=== PATIENT | female | born 1985 | race Caucasian/White ===

== ENCOUNTER 2020-03-08 14:54 | Inpatient (IN) | payer MEDICAID ==
[~2020-03-08] VITALS: Ht 160 cm; Wt 94.3 kg
[2020-03-08 16:19] LABS: BASOPHILS % 0.3 % (0.0-2.0); EOSINOPHILS % 1.8 % (0.0-5.0); HEMATOCRIT. 35.3 % (36.0-48.0); HEMOGLOBIN. 12.1 g/dL (12.0-16.0); LYMPHOCYTES % 20.3 % (20.0-50.0); MEAN CORPUSCULAR HEMOGLOBIN 32.5 pg (28.0-32.0); MEAN CORPUSCULAR VOLUME 94.7 fL (81.0-99.0); MEAN PLATELET VOLUME 11.4 fl (7.4-10.4); MONOCYTES % 6.8 % (2.0-8.0); NEUTROPHILS % 70.8 % (40.0-76.0); PLATELET 119 x1000/uL (130-400); RED BLOOD CELL COUNT 3.72 mill/uL (4.2-5.4); RED CELL DISTRIBUTION WIDTH 13.5 % (11.6-14.6)
[2020-03-08 16:20] LABS: CLARITY URINE CLEAR (CLEAR); COLOR URINE YELLOW (YELLOW); KETONES URINE 1+ (NEGATIVE); LEUKOCYTE ESTERASE URINE NEGATIVE (NEGATIVE); NITRITE URINE NEGATIVE (NEGATIVE); OCCULT BLOOD URINE 1+ (NEGATIVE); PH URINE 6.5 (4.5-8.0); PROTEIN URINE 1+ (NEGATIVE); SPECIFIC GRAVITY URINE 1.022 (1.005-1.030)
[2020-03-08 16:25] LABS: CHLORIDE 111 mEq/L (98-107)
[2020-03-08 16:30] LABS: D-DIMER 1.55 mg/L FEU (<0.50); INR 0.9; PARTIAL THROMBOPLASTIN TIME 27.2 sec (23.4-31.0); PROTHROMBIN TIME 9.4 sec (9.6-11.0)
[2020-03-08] MEDS ORDERED: MISOPROSTOL 100MCG TABLET VG SCH (22:00)
[2020-03-08] MEDS ORDERED: NALOXONE HCL 0.4 MG/ML 1ML VIAL IM PRN (22:00)
[2020-03-08] MEDS ORDERED: PENICILLIN G POTASSIUM 5 MMU in DEXT 5% WATER 100 ML IV SCH (22:00)
[2020-03-08 22:27] LABS: *AMPHETAMINES SCREEN URINE NEGATIVE (NEGATIVE); *BARBITURATES SCREEN URINE NEGATIVE (NEGATIVE); *BENZODIAZEPINES SCREEN URINE NEGATIVE (NEGATIVE); *COCAINE SCREEN URINE NEGATIVE (NEGATIVE)
[2020-03-08] MEDS: DEXT 5%/LACTATED RINGERS 1,000 ML IV SCH (22:27)
[2020-03-08 22:28] LABS: CANNABINOID URINE SCREEN NEGATIVE (NEGATIVE); METHADONE URINE SCREEN NEGATIVE (NEGATIVE); OPIATES URINE SCREEN NEGATIVE (NEGATIVE); PHENCYCLIDINE URINE SCREEN NEGATIVE (NEGATIVE)
[2020-03-08] MEDS: BUTORPHANOL TARTRATE 2 MG/ML VIAL IV PRN (22:30)
[2020-03-08] MEDS ORDERED: FISH MT (22:44)
[2020-03-08] MEDS ORDERED: PREN1TAB22 MT (22:44)
[2020-03-08] MEDS ORDERED: FERR325T6 PO (22:44)
[2020-03-08] MEDS ORDERED: BUPR1FIL SL (22:44)
[2020-03-08] MEDS ORDERED: CHOL200077 PO (22:44)
[2020-03-09] MEDS: PENICILLIN G POTASSIUM 2.5 MMU in DEXTROSE 5% WATER 50 ML IV SCH ×5 (02:50→22:02)
[2020-03-09] MEDS: BUTORPHANOL TARTRATE 2 MG/ML VIAL IV PRN ×3 (03:10→15:02)
[2020-03-09] MEDS ORDERED: MISOPROSTOL 100MCG TABLET VG PRN ×2 (03:45→11:30)
[2020-03-09] MEDS ORDERED: ROPIVACAINE HCL/PF EPIDURAL 200 ML EPI SCH (05:45)
[2020-03-09] MEDS ORDERED: FENTANYL CITRATE/PF 50MCG/ML 2ML VIAL ONE ×4 (09:13→20:04)
[2020-03-09] MEDS: DEXT 5%/LACTATED RINGERS 1,000 ML IV SCH ×2 (11:30→14:21)
[2020-03-09] MEDS ORDERED: EPHEDRINE SULFATE 50MG/ML VIAL ONE (13:21)
[2020-03-09] MEDS ORDERED: SODIUM CHLORIDE 0.9% 10ML VIAL ONE (13:21)
[2020-03-09] MEDS ORDERED: BUPIVACAINE HCL/PF 0.25% (2.5MG/ML) 10ML ONE ×2 (13:22→20:04)
[2020-03-09] MEDS: LACTATED RINGERS 1,000 ML IV SCH ×2 (14:21→19:55)
[2020-03-09] MEDS ORDERED: ROPIVACAINE HCL 2MG/ML (0.2%) 200ML BOTTLE IR ONE (14:30)
[2020-03-09 16:48] LABS: HEPATITIS B SURFACE ANTIGEN NEGATIVE
[2020-03-09] MEDS ORDERED: DEXT 5%/LR + PITOCIN 20UNITS/L 1,000 ML IV SCH (18:00)
[2020-03-09] MEDS ORDERED: DEXT 5%/LR + PITOCIN 20UNITS/L 1,000 ML IV ONE (18:10)
[2020-03-10] MEDS ORDERED: HEMORRHOIDAL SUPP PR PRN (01:15)
[2020-03-10] MEDS ORDERED: DIPHENHYDRAMINE 25MG CAPSULE PO PRN (01:15)
[2020-03-10] MEDS ORDERED: BISACODYL 10MG SUPP PR PRN (01:15)
[2020-03-10] MEDS ORDERED: DEXT 5%/LR + PITOCIN 20UNITS/L 1,000 ML IV SCH (01:15)
[2020-03-10] MEDS ORDERED: IBUPROFEN 400MG TABLET PO PRN (01:15)
[2020-03-10] MEDS ORDERED: LANOLIN OINT 7GM TUBE TOP PRN (01:15)
[2020-03-10] MEDS ORDERED: BENZOCAINE/LANOLIN/ALOE VERA SPRAY TOP PRN (01:15)
[2020-03-10] MEDS: IBUPROFEN 800MG TABLET PO PRN ×3 (02:11→17:17)
[2020-03-10 03:00] VITALS: BP 132/78
[2020-03-10] MEDS: ACETAMINOPHEN WITH CODEINE 300/30MG TABLET PO PRN ×4 (03:08→17:17)
[2020-03-10] MEDS ORDERED: HYDROMORPHONE HCL 4MG TABLET PO SCH (04:00)
[2020-03-10] MEDS ORDERED: HYDROMORPHONE HCL 2MG TABLET PO SCH (04:30)
[2020-03-10] MEDS ORDERED: MAGNESIUM/ALUMINUM HYDROXIDE/SIMETHICONE 30ML UDC PO SCH (07:30)
[2020-03-10 08:00] VITALS: BP 121/79
[2020-03-10] MEDS ORDERED: SIMETHICONE 80MG TABLET CHEW PO SCH (08:00)
[2020-03-10] MEDS ORDERED: PRENATAL VIT/FE FUMARATE/FA TABLET PO SCH (09:00)
[2020-03-10 13:30] VITALS: BP 128/76
[2020-03-10 20:10] VITALS: BP 102/62
[2020-03-10] MEDS ORDERED: DOCUSATE SODIUM 100MG CAPSULE PO SCH (21:00)
[2020-03-11] VITALS: BP 105/60
[2020-03-11] MEDS: IBUPROFEN 800MG TABLET PO PRN ×2 (00:31→11:21)
[2020-03-11] MEDS: ACETAMINOPHEN WITH CODEINE 300/30MG TABLET PO PRN ×3 (00:55→09:45)
[2020-03-11 05:05] VITALS: BP 104/59
[2020-03-11] MEDS ORDERED: FERROUS SULFATE 325MG TABLET PO SCH (07:30)
[2020-03-11 07:45] VITALS: BP 132/78
[2020-03-11] MEDS ORDERED: IBUP-2030 PO (07:56)
[2020-03-11 08:06] LABS: BASOPHILS % 0.4 % (0.0-2.0); EOSINOPHILS % 1.4 % (0.0-5.0); HEMATOCRIT. 28.1 % (36.0-48.0); HEMOGLOBIN. 9.6 g/dL (12.0-16.0); LYMPHOCYTES % 26.3 % (20.0-50.0); MEAN CORPUSCULAR HEMOGLOBIN 32.6 pg (28.0-32.0); MEAN CORPUSCULAR VOLUME 95.7 fL (81.0-99.0); MEAN PLATELET VOLUME 11.4 fl (7.4-10.4); MONOCYTES % 5.9 % (2.0-8.0); PLATELET 99 x1000/uL (130-400); RED BLOOD CELL COUNT 2.94 mill/uL (4.2-5.4); RED CELL DISTRIBUTION WIDTH 13.4 % (11.6-14.6)
== END 2020-03-11 12:20 | disposition home or self-care (01) | DRG 560 ==
LOC: OBSVTOIN 14:54 → 8 EST LDRP 14:54 → 8EST 03-10 00:54
PROVIDERS: ADMIT Obstetrics & Gynecology; ATTEND Obstetrics & Gynecology
PROC: 10E0XZZ Delivery of Products of Conception, External Approach (ICD-10-PCS; principal; 2020-03-10)
PROC: 0HQ9XZZ Repair Perineum Skin, External Approach (ICD-10-PCS; 2020-03-10)
PROC: 3E0P7VZ Introduction of Hormone into Female Reproductive, Via Natural or Artificial Opening (ICD-10-PCS; 2020-03-10)
PROC: 3E0R3BZ Introduction of Anesthetic Agent into Spinal Canal, Percutaneous Approach (ICD-10-PCS; 2020-03-10)
PROC: 00HU33Z Insertion of Infusion Device into Spinal Canal, Percutaneous Approach (ICD-10-PCS; 2020-03-10)
DX: O41.03X0 Oligohydramnios, third trimester, not applicable or unspecified (principal); O75.89 Other specified complications of labor and delivery; O70.0 First degree perineal laceration during delivery; Z37.0 Single live birth; Z3A.38 38 weeks gestation of pregnancy; R03.0 Elevated blood-pressure reading, without diagnosis of hypertension; Z20.828 Contact with and (suspected) exposure to other viral communicable diseases
CPT/HCPCS: 36415; 76815; 76818; 80053; 80305; 81003; 84550; 85025; 85379; 85384; 86592; 86762; 87340; 99281; J0595; J2540; J2590; J2795; J3010; J3490; J7060; J7120; J7121; U0003; A4315